=== PATIENT | female | born 1940 | race Caucasian/White ===

== ENCOUNTER 2025-05-21 22:53 | Inpatient (IN) | payer MEDICARE, OTHER, SELFPAY ==
[2025-05-21 17:06] VITALS: BP 142/50
[2025-05-21 17:35] LABS: Hematocrit 41.8 % (37.0-47.0); Hemoglobin 13.9 g/dL (12.0-16.0); Mean Corp Hgb Conc. 33.3 g/dL (33.0-37.0); Mean Corpuscular Volume 104.0 fL (81.0-99.0); Nucleated Red Blood Cells % 0 %; Platelet Count 439 10^3/uL (130-400); Red Cell Dist. Width 12.5 % (11.5-14.5)
[2025-05-21 17:54] LABS: ALT (SGPT) 26 U/L (0-35); AST (SGOT) 32 U/L (14-36); Albumin 3.6 g/dl (3.5-5.0); Alkaline Phosphatase 84 U/L (38-126); Blood Urea Nitrogen 34 mg/dl (7-17); Calcium 9.1 mg/dl (8.4-10.2); Carbon Dioxide 31 mmol/L (22-30); Chloride 100 mmol/L (98-107); Glucose 202 mg/dl (70-99); Potassium 4.6 mmol/L (3.5-5.1); Sodium 139 mmol/L (135-145); Total Protein 6.8 g/dl (6.3-8.2); eGFR > 60.00
--- NOTE | 2025-05-21 18:48 | ED.GENMED ---
History of Present Illness
General
Chief Complaint: Weakness
Source: patient and family
Exam Limitations: none
Time Seen by Provider: 05/21/25 18:30
History of Present Illness
History of Present Illness:
84yoF with a history of arthritis and autoimmune hepatitis presenting with her daughter for evaluation of fatigue. Patient lives in [place] and is in the area visiting her daughter. She has been taking prednisone for the past 17 years which was
initially prescribed for autoimmune hepatitis. This was decreased to 5mg every other day about 2 months ago. She was not feeling well and saw her PCP 4 days ago and this was switched back to 5mg daily. Patient has been fatigued with generalized
weakness since arriving at her daughter's house. She also reports shortness of breath and decreased appetite. No chest pain, vomiting, diarrhea, urinary symptoms, dizziness, abdominal pain.
Phy Exam
General Physical Exam
General Presentation: well appearing and no apparent distress
General Skin: warm and dry
General Habitus: normal and elderly
General Mental: alert
ENT Exam
ENT Exam: normocephalic
Cardiovascular Exam
Cardiovascular Exam: regular rate/rhythm and no edema
Pulmonary Exam
Pulmonary Exam: lungs clear, no respiratory distress, no rales, no crackles, no rhonchi and no wheezing
Gastrointestinal Exam
Gastrointestinal Exam: non tender, soft and non distended
Neurological Exam
Neurological Exam: alert
Addis Coma Scale
Eye Opening: Spontaneous
Verbal Response: Oriented
Motor Response: Obeys Commands
GCS Total Score: 15
Skin Exam
Skin Exam: normal color and warm/dry
Psychiatric Exam
Psychiatric Exam: normal mood/affect
Course
Orders/Labs/Results
Orders:
Orders
05/21/25 17:20
C-Reactive Protein Urgent
Complete Blood Count/With Diff Urgent
Comprehensive Metabolic Panel Urgent
Creatine Phosphokinase Urgent
Comment: ADD ON
Erythrocyte Sed Rate Urgent
Comment: CRP
TSH Urgent
Comment: ADD ON
05/21/25 17:21
EKG [Electrocardiogram (*1)] Urgent
Reason for Study: Chest Pain
EKG- Treatment ONCE
05/21/25 19:01
Add On- LAB Urgent
Tests Added?: TSH
Cardiac Monitoring- Treatment ONCE
0.9% Sodium Chloride 500 ml [Nss] 500 ml IV BOLUS
CR Chest - 2 Views Urgent
Comment:
Reason For Exam: SOB
05/21/25 19:18
Lactate Level [Lactic Acid] Urgent
NT-proBNP Urgent
Troponin I Urgent
05/21/25 19:20
COVID-19 Antigen Urgent
Source: Nasal Swab
Influenza A+B Rapid Molecular Urgent
RENE Source: Nasal Swab
Specimen Description:
05/21/25 19:39
Urinalysis Reflex To Culture Urgent
Date Specimen was Collected: 05/21/25
Time Specimen was Collected: 19:36
Urine Microscopic Reflex Cult Urgent
Urine Culture Urgent
RENE Source: U
Specimen Description:
Date Specimen was Collected: 05/21/25
Time Specimen was Collected: 19:36
05/21/25 20:46
CefTRIAXone [Rocephin] 1,000 mg IV NOW STA
05/21/25 21:03
Blood Culture Q30M
RENE Source: Blood/Venous
Specimen Description:
05/21/25 21:04
Blood Culture Q30M
RENE Source: Blood/Venous
Specimen Description:
05/21/25 22:19
Add On- LAB Urgent
Tests Added?: cpk
05/21/25 22:25
Admit/Transfer Patient As Directed
Co-Sign Provider:
Level of Care: Inpatient admission
Assign to:: Telemetry
Physician / Group: Mackenzie
Diagnosis: Weakness
Reason for Telemetry: Arrhythmia
Date to Stop Telemetry: 05/24/25
Time to Stop Telemetry: 11:00
Reason for Hospitalization: diuretics, echo
Expected length of stay greater than two midnights?: Yes
ELOS- Estimated Length of Stay in days: 3
I certify the patient meets the requirements for IP care: Yes
05/21/25 22:26
PRN Pain Medication Management As Directed
May give lesser potent ordered pain med per pt: Yes
preference::
Protocol:: Medication orders for pain may be administered in a
manner that supports deferring to patient preference
when the pt is:
- Requesting an ordered lesser potent pain medication.
Least to most potent pain medications are defined
as: acetaminophen < NSAID < tramadol < opioids
(morphine, oxycodone, hydromorphone).
- Requesting a lesser dose of the same medication IF
ORDERED.
- Requesting a less intrusive route of administration
if both routes are prescribed by the provider (PO <
IV).
05/21/25 22:28
Code Status As Directed
Resuscitation Status: Do not resuscitate
Reached after discussion with pt or family/Healthcare POA: Yes
DNR Bracelet Application ONCE
05/21/25 22:32
Furosemide [Lasix] 40 mg IV NOW STA
05/21/25 22:41
Add On- LAB Routine
Tests Added?: esr, crp
05/24/25 11:00
DC Protocol for Telemetry ONCE
Abnormal Lab Results
05/21/25 05/21/25
17:20 19:39
WBC 18.9 H 10^3/uL
(4.8-10.8)
RBC 4.02 L 10^6/uL
(4.20-5.40)
MCV 104.0 H fL
(81.0-99.0)
MCH 34.6 H pg
(27.0-31.0)
Plt Count 439 H 10^3/uL
(130-400)
Abs Immat Gran (auto) 0.1 H 10^3/uL
(0-0.05)
Absolute Neuts (auto) 16.6 H 10^3/uL
(1.4-6.5)
Absolute Lymphs (auto) 0.9 L 10^3/uL
(1.2-3.4)
Absolute Monos (auto) 1.2 H 10^3/uL
(0.1-0.6)
Immature Gran % 0.6 H %
(0-0.5)
Neutrophils % 87.8 H %
(42.2-75.2)
Lymphocytes % 4.5 L %
(20.5-51.1)
ESR 64 H mm/hour
(0-20)
Carbon Dioxide 31 H mmol/L
(22-30)
BUN 34 H mg/dl
(7-17)
Glucose 202 H mg/dl
(70-99)
Ur Occult Blood Reflex 4+ A
(Negative)
Leukocyte Esterase Rfl 3+ A
(Negative)
Urine RBC 7-10 A /HPF
(0-2)
Urine WBC (Reflex) 16-20 A /HPF
(0-5)
Urine Bacteria (Reflex) Moderate A
(Negative)
Urine Albumin (Reflex) 3+ A
(Neg - Trace)
05/21/25 17:20
05/21/25 17:20
Vital Signs
Initial and Last Documented VS:
Initial Vital Signs
Temp Pulse Resp BP Pulse Ox
98.2 F 72 16 142/50 94
05/21/25 17:06 05/21/25 17:06 05/21/25 17:06 05/21/25 17:06 05/21/25 17:06
Last Documented Vital Signs
Temp Pulse Resp BP Pulse Ox
98.2 F 82 19 174/66 93
05/21/25 17:06 05/21/25 22:15 05/21/25 22:15 05/21/25 22:00 05/21/25 22:15
MDM/Problems Addressed
Differential Diagnosis Includes:
84yoF here with generalized weakness, malaise, anorexia x several days. Also c/o SOB. No fevers. VSS. She is well appearing in no distress. Exam is reassuring. Differential diagnosis includes but is not limited to: viral illness, pneumonia, ACS,
dehydration, UTI, failure to thrive
Initial ED plan: Labs obtained in triage which shows a leukocytosis with a WBC of 18.9. Will check lactate, TSH, troponin/EKG, COVID/flu testing, UA, and CXR. IV fluid bolus.
*Pulse Oximetry
SaO2: 94
Oxygen Mode of Delivery: Room air
Patient hypoxic: no (94%)
*EKG
Interpreted by ED Provider?: Yes
EKG Intrepretation Date: 05/21/25
Heart Rate: 76
Rate: normal
Rhythm: sinus and PVC's
Rosalia: normal axis
QRS Pattern: right bundle branch block
Ischemia: no ischemia
*Critical Care Note
Total Time (30-74mins, 75-104mins- exclusive of procedures): Not Applicable
Update Note
Update Note:
EKG shows NSR with PVCs without ischemic changes and troponin WNL. Viral testing negative. UA with 3+ leukocytes and moderate bacteria suggesting UTI. Blood cultures and IV Rocephin added. Patient admitted for further evaluation and management.
ED Attending Note
-
Portions of this chart may have been created with voice recognition software.� Occasional wrong word or��sound alike� substitutions may have occurred due to the inherent limitations of voice recognition software.
Discharge Plan
Departure
Patient Disposition: Admit
Date of Disposition: 05/21/25
Time of Disposition: 20:56
Presentation/result/management discussed w/ accepting MD/DO: Hospitalist
Discharge Problem:
Urinary tract infection, Generalized weakness
Interventions
Interventions:
*Risk Screen - Suicide Last Done: 05/21/25 17:06
*General Assessment Last Done: 05/21/25 19:06
*Neglect/Abuse Screening Last Done: 05/21/25 17:06
*ED- Fall Risk Assessment Last Done: 05/21/25 19:06
*ED COVID-19 Vaccine History Last Done: 05/21/25 19:06
ED- Cardiac Assessment Last Done: 05/21/25 19:06
ED- Neurological Assessment Last Done: 05/21/25 19:06
ED- Pulmonary Assessment Last Done: 05/21/25 19:06
[2025-05-21 19:04] VITALS: BP 153/63
[2025-05-21 19:05] VITALS: BMI 22.1
[2025-05-21] MEDS: NSS 500 IV (19:35)
[2025-05-21 20:00] VITALS: BP 148/98
[2025-05-21 20:04] LABS: COVID-19 Antigen Negative (Negative)
[2025-05-21 20:14] LABS: Urine Character Slightly Cloudy (Clear)
[2025-05-21 20:19] LABS: Troponin I < 0.012 ng/ml
[2025-05-21 20:40] LABS: Urine Squamous Cell 16-20 /LPF (Few); Urine White Cell 16-20 /HPF (0-5)
[2025-05-21 20:45] LABS: TSH 3.97 uIU/ml (0.47-4.68)
[2025-05-21 21:00] VITALS: BP 178/95
[2025-05-21] MEDS: ROCEPHIN 1000 MG IV (21:05)
[2025-05-21 22:00] VITALS: BP 174/66
--- NOTE | 2025-05-21 22:06 | W.PN.UPDATE ---
Update Note
Progress Note Update
Patient seen in conjunction with LINA. I agree with her findings on history and physical. I concur with assessment and plan unless stated otherwise.
Briefly, this is a 84-year-old with past medical history of autoimmune hepatitis on chronic prednisone, hypertension, fibromyalgia who presents from home with complaints of generalized weakness. Patient usually lives in [place] but has been
visiting daughter recently.
Patient reported symptoms of fatigue began about a month ago after prednisone was tapered down to twice daily on and off. She states she started noticing fatigue lethargy and generalized weakness. She also has dyspnea on exertion with walking up a
flight of stairs. She denies orthopnea, PND, chest pain, palpitations, ankle edema since then. She reports increased sleepiness. She also reports generalized aches and pains for which she has been taking ibuprofen daily which makes her more
sleepy.
Patient denies any fevers or chills. She denies any urinary symptoms. She denies any cough. She denies any rash. She reports decreased appetite but does not know of any weight gain or weight loss.
Patient does have prior history of smoking and is on treatment for COPD, prior history of atypical chest pain and likely diagnosed with stress cardiomyopathy.
Since visiting daughter she has been reporting fatigue, lethargy and generalized weakness. She had a dose of prednisone recently decreased to 5 every other day from 5 daily but this has been more recently increased back to 5 daily again without any
improvement in her symptoms. Prednisone was increased back to 5 mg daily about 4 days ago
In the emergency department blood pressure was 150/83, pulse 71 temperature 98.2 and she is satting 93% on room air. ECG with normal sinus rhythm at a rate of 76 and right bundle with occasional PVC. No priors for comparison. She has a white
count of 18.9 with neutrophil percentage of 87, hemoglobin and platelets were normal. Electrolytes were normal. BUN/creatinine were 34 and 0.8. Glucose was 202. LFTs were normal. BNP was elevated at 2450. Troponin was negative. TSH within
normal limits.
Chest x-ray shows trace pleural effusion on the left. UA has positive leukocyte esterase WBCs and bacteria however he also has remote cells and likely is contaminated.
Assessment and plan
Dyspnea on exertion - Elevated BNP, trace pleural effusion and HTN suggestive of mild CHF
- admit to telemetry
- trial of lasix 40 iv overnight
- echo in am
- ambulating sats
- cardiology consult
Weakness/Fatigue - No evidence of acute infection. Possibly chronic arthritis vs polymyalgia
- orthostatics
- check esr/crp
- continue her duloxetine and sulfasalazine
- continue her prednisone 5, if cardiac w/u negative, consider dosing for PMR
Hyperglycemia - On low dose steroids but unclear when last intake
- a1c in am
DVT PPX - lovenox sq
Code status - patient changed mind and wants to be FULL CODE
--- NOTE | 2025-05-21 22:33 | HPS.HSE ---
Family Physician
-
Family Physician: PHYSICIAN PRIVATE
Chief Complaint
-
Weakness
History of Present Illness
Patient is an 84 y/o female past medical history of autoimmune hepatitis on chronic prednisone, hypertension, COPD and overactive bladder who presents with generalized weakness. Patient reports increasing weakness over the past several weeks. Her
prednisone dose had been decreased from daily to every other day but with theses symptoms it was increased back to daily. However, patient reports persistent symptoms. She notes associated poor appetite, but denies nausea, vomiting, diarrhea,
constipation or abdominal pain. She reports shortness of breath, particularly going up the stairs, but states that is has been ongoing for quite sometimes. She denies chest pain, palpitation or lower extremity edema. She denies dysuria or urinary
frequency. She denies fevers.
Patient lives in [place] and currently in the area visiting her daughter.
Medical History
Past Medical History
Past Medical History: Reports Other
Additional Past Medical History:
'Heart Attack' (?Takotsubo)
Essential Hypertension
Hyperlipidemia
Autoimmune Hepatitis
COPD
Overactive Bladder
Rheumatoid Arthritis
Fibromyalgia
Past Surgical History: Reports Other
Additional Past Surgical History:
Hysterectomy
Social History
Tobacco: Former Smoker (Quit about 25 years ago)
Alcohol: Occasional (One glass of wine a few nights a week)
Family History
Family History: Not pertinent
Allergies / Home Medications
Allergies reflects when Allergies were last updated in [employer].
Home Medications with original date entered in [employer]
Allergy/Medication List:
Allergies
Allergy/AdvReac Type Severity Reaction Status Date / Time
No Known Allergies Allergy Verified 05/21/25 17:05
Home Medications
aspirin 81 mg tablet,delayed release 81 mg PO DAILY 05/21/25
atorvastatin 40 mg tablet (Lipitor) 20 mg PO DAILY 05/21/25
calcium 500 mg (as carbonate)-vitamin D3 10 mcg (400 unit) tablet (Calcium 500 + D) 1 tab PO DAILY 05/21/25
duloxetine 30 mg capsule,delayed release 30 mg PO DAILY 05/21/25
lisinopril 10 mg tablet 10 mg PO DAILY 05/21/25
metoprolol succinate 25 mg tablet,extended release 24 hr (Toprol XL) 25 mg PO DAILY 05/21/25
prednisone 5 mg tablet 5 mg PO DAILY 05/21/25
sulfasalazine 500 mg tablet 500 mg PO DAILY 05/21/25
tiotropium bromide 2.5 mcg/actuation mist for inhalation (Spiriva Respimat) 2 puff inhalation DAILY 05/21/25
tolterodine 4 mg capsule,extended release 24 hr 4 mg PO QPM 05/21/25
vitamins A,C,E-nfzw-qtuqmv 4,296 mcg-226 mg-90 mg capsule 1 cap PO DAILY 05/21/25
Review of Systems
-
A 12 point ROS was completed and negative except as noted: Yes
Constitutional: Denies Fever or Chills
Respiratory: Reports Trouble Breathing
Cardiac: Denies Chest Pain or Palpitations
Abdomen/GI: Denies Abdominal Pain, Nausea, Vomiting or Diarrhea
Physical Exam
Vital Signs
Vital Signs
Temp Pulse Resp BP Pulse Ox
98.2 F 82 19 174/66 93
05/21/25 17:06 05/21/25 22:15 05/21/25 22:15 05/21/25 22:00 05/21/25 22:15
Physical Exam
General: Comfortable and Conversant
HEENT: Anicteric and Moist mucous membranes
Respiratory: Other (Slightly decreased breath sounds right base)
Cardiac: S1/S2 and Regular Rhythm
GI: Soft and Non Tender
Musculoskeletal: No Clubbing, No Cyanosis and No Edema
Skin: Warm and Dry
Neuro: Awake, Alert, Oriented and Nonfocal/grossly intact
Psych: Calm
Laboratory Results
-
05/21/25 17:20
05/21/25 17:20
Laboratory Results
Lactic Acid 1.9 mmol/L (0.7-2.0) 05/21/25 19:18
Total Bilirubin 0.6 mg/dl (0.2-1.3) 05/21/25 17:20
AST 32 U/L (14-36) 05/21/25 17:20
ALT 26 U/L (0-35) 05/21/25 17:20
Alkaline Phosphatase 84 U/L (38-126) 05/21/25 17:20
Troponin I < 0.012 ng/ml 05/21/25 19:18
Data Reviewed
-
Diagnostic Radiology: Image Personally Visualized and interpreted (CXR: Small right pleural effusion)
Lab Data: Labs Reviewed by me
Impression/Plan
-
Generalized Weakness / Fatigue, unclear etiology possibly related to volume overload vs hyperglycemia vs rheumatologic etiology
-Check ESR / CRP
-BNP elevated and CXR with small pleural effusion. Patient reports dyspnea on exertion though the chronicity is unclear. Give dose of Lasix now and monitor for response. Check Echocardiogram. Consult Cariology
-Urinalysis is slightly abnormal, but appears more consistent with contaminant. Patient denies any urologic symptoms therefore doubt urinary tract infection. Patient receive dose of Rocephin in ED, but will hold on further antibiotics
Hyperglycemia, patient without known history of diabetes
-Check HgbA1c
'Heart Attack' (?Takotsubo)
-Continue aspirin
Essential Hypertension
-Continue lisinopril and metoprolol with hold parameters
Hyperlipidemia
-Continue atorvastatin
Autoimmune Hepatitis
-Continue prednisone
COPD, no acute exacerbation
-Continue Spiriva
Overactive Bladder
-Continue Detrol
Rheumatoid Arthritis
-Continue sulfasalazine
Fibromyalgia
-Continue duloxetine
DVT proph: Lovenox
Code Status: DNR per patient at time of admission
[2025-05-21] MEDS: LASIX 40 MG IV (22:40)
[2025-05-21 23:29] VITALS: BP 142/93
[2025-05-22 00:10] LABS: C-Reactive Protein 178.80 mg/L (0.0-10.00)
[2025-05-22 00:47] VITALS: BP 172/82
[2025-05-22 00:48] VITALS: BMI 20.2
--- NOTE | 2025-05-22 01:35 | PTCARENOTE ---
Pt admitted to floor from ED. AAOx3, REDDING. VSS. NSR on the monitor with BBC and vent trigeminy. Oriented to room. Call bui within reach.
[2025-05-22 03:19] VITALS: BP 168/80
[2025-05-22 06:00] VITALS: BMI 20.2
[2025-05-22 07:00] VITALS: BP 162/68
[2025-05-22 07:24] LABS: Glucose - Point of Care 102 mg/dl (70-99)
[2025-05-22] MEDS: ASPIR LOW (ENTERIC COATED) 81 MG PO (07:44)
[2025-05-22] MEDS: CYMBALTA DELAYED RELEASE 30 MG PO (07:45)
[2025-05-22] MEDS: ZESTRIL 10 MG PO (07:45)
[2025-05-22] MEDS: AZULFIDINE 500 MG PO (07:45)
[2025-05-22] MEDS: LIPITOR 20 MG PO (07:45)
[2025-05-22] MEDS: DELTASONE 5 MG PO (07:45)
[2025-05-22] MEDS: TOPROL XL 25 MG PO (07:46)
[2025-05-22 07:52] LABS: Hematocrit 38.7 % (37.0-47.0); Hemoglobin 13.2 g/dL (12.0-16.0); Mean Corp Hgb Conc. 34.1 g/dL (33.0-37.0); Mean Corpuscular Volume 100.8 fL (81.0-99.0); Platelet Count 406 10^3/uL (130-400); Red Cell Dist. Width 12.5 % (11.5-14.5)
[2025-05-22] MEDS: SPIRIVA RESPIMAT 2.5 MCG 2 PUFF INH (08:30)
[2025-05-22 08:45] LABS: Blood Urea Nitrogen 26 mg/dl (7-17); Calcium 8.8 mg/dl (8.4-10.2); Carbon Dioxide 34 mmol/L (22-30); Chloride 98 mmol/L (98-107); Estimated Creatinine Clearance 49 ml/min; Glucose 90 mg/dl (70-99); Potassium 4.6 mmol/L (3.5-5.1); Sodium 138 mmol/L (135-145); eGFR > 60.00
--- NOTE | 2025-05-22 09:12 | CON.CAR ---
Addendum entered and electronically signed by Salvador Ng MD 05/22/25 11:46:
Patient seen in collaboration with PGY 2 resident; agree with below.
- 84-year-old female (known to her primary promotions executive in [place]; the patient is visiting her son and [id number] in this area but plans to return to [place] in 3 days) with hypertension, hyperlipidemia, likely chronic PVCs, COPD, and
autoimmune hepatitis (on chronic steroids); presenting with generalized weakness.
- Cardiology was consulted for possible CHF.
- Examination: Heart regular rate and rhythm, ectopy present, 3/6 systolic murmur; lungs clear to auscultation bilaterally; abdomen soft; extremities no edema.
- Assessment/plan:
- The patient has no obvious clinical evidence of CHF; cardiac BNP is elevated, but this is likely nonspecific as the patient is compensated on examination and denies dyspnea.
- There does not appear to be a need for a standing diuretic.
- PVCs: Asymptomatic, likely chronic; continue current dose of Toprol-XL 25 mg daily.
- No further cardiac recommendations at this time; patient can follow-up with her primary Entrepreneur as an outpatient once she returns to [place].
Original Note:
Documented by User: Gracie Parkinson MD, Resident 05/22/25 10:44
Consultation
Consultation Request
Date/Time Consultation Requested: 05/22/25
Date/Time Consultation Performed: 05/22/25
Requesting Provider: Terri Wade
Performing Provider: Berenice Franco
Reason for Consultation: Exertional dyspnea, elevated BNP and Chest xray with effusions
Medical History
-
Chief Complaint: Generalized weakness
History of Present Illness:
Patient is an 84-year-old female, with past medical history of autoimmune hepatitis, rheumatoid arthritis, COPD, hypertension, hyperlipidemia, who presented to the emergency department with complaint of generalized weakness. She has been on chronic
steroid therapy 5 mg daily for autoimmune hepatitis, which was interrupted last week to alternate days. Patient states that she started to feel very weak and all her joints were aching, she called her PCP who advised to resume her medications to
daily. She has been taking prednisone daily since last Saturday but still feeling very weak.
She is from [place] and is currently visiting her son and [id number]. Medical records are not available. She sees Dr. Brooks at [facility] in [place]. She last saw him 3 months and no changes were made and she was stable. She
is supposed to see him again in 3 months. On telemetry review, she has some runs of multifocal atrial tachycardia but nothing significant. She is comfortable, respiratory effort normal, no peripheral edema and appears euvolemic.
She denies any shortness of breath, chest pain, palpitations, fluttering of chest, or peripheral edema.
Based on evaluation done in the ER she had an elevated proBNP of 2520 but we do not know her baseline. Esr and CRP are elevated Chest x-ray showed trace pleural effusions.
Past Medical History
Past Medical History: COPD, HTN, Hypercholesterolemia and Other (Autoimmune Hepatitis, Rheumatoid arthritis, Fibromyalgia, overactive bladder, Heart attack???)
Past Surgical History: Gynecological (Hysterectomy)
Social History
Tobacco: Former Smoker ((Quit about 25 years ago))
Alcohol: Occasional ((One glass of wine ))
Drug: None
Personal:
Living: Other ([facility] facility)
Employment: Retired
Family History
Family History: Other (Non contributory)
Allergies / Home Medications
Allergy/AdvReac Type Severity Reaction Status Date / Time
No Known Allergies Allergy Verified 05/21/25 17:05
�Medication �Instructions �Recorded �Confirmed �Type
aspirin 81 mg tablet,delayed 81 mg PO DAILY 05/21/25 05/21/25 History
release
atorvastatin 40 mg tablet (Lipitor) 20 mg PO DAILY 05/21/25 05/21/25 History
calcium 500 mg (as 1 tab PO DAILY 05/21/25 05/21/25 History
carbonate)-vitamin D3 10 mcg (400
unit) tablet (Calcium 500 + D)
duloxetine 30 mg capsule,delayed 30 mg PO DAILY 05/21/25 05/21/25 History
release
lisinopril 10 mg tablet 10 mg PO DAILY 05/21/25 05/21/25 History
metoprolol succinate 25 mg 25 mg PO DAILY 05/21/25 05/21/25 History
tablet,extended release 24 hr
(Toprol XL)
prednisone 5 mg tablet 5 mg PO DAILY 05/21/25 05/21/25 History
sulfasalazine 500 mg tablet 500 mg PO DAILY 05/21/25 05/21/25 History
tiotropium bromide 2.5 2 puff inhalation DAILY 05/21/25 05/21/25 History
mcg/actuation mist for inhalation
(Spiriva Respimat)
tolterodine 4 mg capsule,extended 4 mg PO QPM 05/21/25 05/21/25 History
release 24 hr
vitamins A,C,T-nyna-ohbzdr 4,296 1 cap PO DAILY 05/21/25 05/21/25 History
mcg-226 mg-90 mg capsule
Review of Systems
-
All other systems: Negative unless noted
Physical Exam
Vital Signs
Temp Pulse Resp BP Pulse Ox
97.6 F 85 16 162/68 92
05/22/25 07:00 05/22/25 08:33 05/22/25 08:33 05/22/25 07:45 05/22/25 08:33
Lab Results
05/22/25 06:23
05/22/25 06:23
Troponin I < 0.012 ng/ml 05/21/25 19:18
Wrr-H-Dqjfdudxqgy Pept 2520 pg/ml 05/21/25 19:18
Physical Exam
General: No Apparent Distress, Comfortable and Other (weak and fragile)
Respiratory: Clear and Non Labored Respirations; Negative Wheezes, Crackles or Rhonchi
Cardiac: S1/S2 and Irregular Rhythm; Negative Murmur, Rub, Peripheral Edema, Calf Tenderness or JVD
GI: Soft and Non Tender
Musculoskeletal: No Clubbing, No Cyanosis and No Edema
Skin: Warm and Dry
Neuro: Awake and AO x 3
Psych: Calm
Impression / Plan
-
Impression
84-year-old female, presented with generalized weakness due to interruption of her steroid regimen in setting of autoimmune hepatitis/rheumatoid arthritis.
Elevated CRP and ESR, elevated WBC count
Chest g-zpt-jajkgkjvmaqlkq of the lungs and trace pleural effusion BNP 2520
TSH 3.97
Cortisol pending
Assessment/plan
# heart failure unlikely
Patient euvolemic
No signs of breathing discomfort, denies orthopnea/PND
Not on any diuretics at home
proBNP elevated but not clinically relevant at this point
Chest x-ray shows trace pleural effusions but there is no pulmonary congestion to suggest heart failure
Continue home medications including aspirin, atorvastatin, metoprolol and lisinopril
Follow-up with primary promotions executive
# Multifocal atrial tachycardia
On telemetry review, she had brief runs of multifocal atrial tachycardia
Expected given underlying lung pathology
No intervention needed at this time
# Hyperlipidemia
Continue atorvastatin
#Hypertension
On lisinopril
#Rheumatoid arthritis
Sulfasalazine
#Autoimmune hepatitis
On prednisone 5 mg daily

Documented by User: Salvador Ng MD 05/22/25 11:42
Consultation
Consultation Request
Performing Provider: Berenice Franco MD
Data Reviewed
-
EKG: Tracing Personally Visualized and interpreted (Sinus rhythm with short VT, frequent PVCs, RBBB.)
Labs: Labs Reviewed by me and Discussed with Physician (PGY-2)
--- NOTE | 2025-05-22 10:40 | W.PN.HOSP.TC ---
Today's Communication/Plan
-
Assessment / Plan
Assessment / Plan
General: No Apparent Distress, Comfortable and Conversant
HEENT: NormoCephalic, Moist mucous membranes, Atraumatic
Respiratory: Clear and Non Labored Respirations
Cardiac: S1/S2 and Regular Rhythm; No Rub or Gallop
GI: Soft, Non Tender, Non Distended and Normal Bowel Sounds
Musculoskeletal: No Edema, no deformity
Skin: Warm and dry
: NO Umanzor
Neuro: Awake, Alert, Nonfocal/grossly intact
Psych: Calm and Intact Judgment/Insight
Ms. Frausto is a 84-year-old female with a medical history of COPD, autoimmune hepatitis (on chronic low-dose prednisone), hypertension, and rheumatoid arthritis who presented due to progressive weakness over the past several weeks. She thinks the
symptoms were triggered by a change in her prednisone dosage. She has been on prednisone 5 mg daily for the past 18 years but her physician was trying to wean her off of this by transitioning to prednisone 5 mg every 48 hours. However her symptoms
have persisted even after her symptoms have persisted even after her prednisone was increased back to 5 mg daily on Thursday 05/17. Her ESR and CRP are elevated which is likely chronic. She has a leukocytosis which is likely due to chronic steroid
use. She has remained afebrile and cultures are negative to date. Labs were remarkable for pyuria, bacteria, RBCs, and proteinuria. She denies any urinary symptoms. She has been admitted for further evaluation and management.
Generalized weakness and fatigue:
- Suspect related to her recent change in prednisone dosage, now back to 5 mg daily which was her previous dose for the past 18 years due to autoimmune hepatitis
- Will trial stress dose steroids
- Checking a.m. cortisol although this is likely of limited value considering recent steroid use, but would not attempt to wean steroids at this time, TSH is within normal limits
- Will recheck urinalysis as there was some concern the initial UA was contaminated, of note she was given a dose of ceftriaxone in the ED
- She is not bradycardic or on beta-blockers
- Not hypoglycemic, in fact she was hyperglycemic on admission which is likely related to her steroid use, hemoglobin A1c pending
- Chest x-ray with no evidence of pulmonary infection but did show trace bilateral pleural effusions, she does have some dyspnea on exertion which may be related to her COPD, she has been saturating appropriately on room air
Pleural effusions:
- Trace bilateral pleural effusions
- Clinically insignificant
- Elevated BNP, no clinical evidence of heart failure, can follow-up with primary food cooking machine operator
COPD:
- Without acute exacerbation, not spastic on exam
- Continue scheduled nebulizer treatments
- Already on chronic steroids for autoimmune hepatitis
Abnormal urinalysis:
- UA shows RBCs, pyuria, bacteria, and proteinuria
- Some concern that this was contaminated, will repeat
- Patient denies any urinary symptoms, did receive 1 dose of ceftriaxone in the ED
- Depending on the results of repeat UA, may need further workup likely as outpatient
Abnormal lung finding on imaging:
- Chest x-ray showed 1.6 cm nodular opacity in the lateral right lower lobe
- Will need to follow-up for nonemergent chest CT in the outpatient setting
Rheumatoid arthritis:
- Continue sulfasalazine
Hypertension:
- Continue home lisinopril 10 mg daily
DVT prophylaxis: Lovenox
CODE STATUS: Full code
Total time spent on today's encounter was 43 minutes
Anticipated Discharge: 24 - 48 hours
Subjective/Interval History
-
Date of Service: May 22, 2025
Patient was seen and examined at bedside this morning. Still feeling generally weak, she thinks due to recent change in her prednisone dosage. Still no urinary symptoms. Remains hemodynamically stable and afebrile.
Objective Data
-
Labs:
Laboratory Results
05/22/25
06:23
WBC 17.8 H
Hgb 13.2
Hct 38.7
Plt Count 406 H
Sodium 138
Potassium 4.6
Chloride 98
Carbon Dioxide 34 H
BUN 26 H
Creatinine 0.7
Glucose 90
Calcium 8.8
Vital Signs:
Vital Signs
Temp Pulse Resp BP Pulse Ox
97.6 F 85 16 162/68 92
05/22/25 07:00 05/22/25 08:33 05/22/25 08:33 05/22/25 07:45 05/22/25 08:33
I&O
05/21/25 05/22/25 05/23/25
06:59 06:59 06:59
Intake Total 120 / 120
Balance 120 / 120
Review of Systems
-
History Source: Patient
All other systems: Reviewed and negative
Constitutional: Reports Fatigue and Weakness
Physical Exam
-
General: No Apparent Distress
[2025-05-22 11:00] VITALS: BP 147/80
[2025-05-22 11:11] LABS: Glycohemoglobin (HgbA1c) 6.2 % (4.0-5.6)
[2025-05-22 11:22] LABS: Cortisol, Random 15.2 ug/dl
[2025-05-22] MEDS: SOLU-CORTEF 25 MG IV (11:47)
[2025-05-22 11:59] LABS: Urine Character Clear (Clear)
[2025-05-22 12:06] LABS: Urine Squamous Cell 0-2 /LPF (Few)
[2025-05-22 12:22] LABS: Glucose - Point of Care 147 mg/dl (70-99)
--- NOTE | 2025-05-22 12:59 | W.DCSUMMARY ---
Discharge Summary
Discharge Data
Date of Admission: 05/21/25
Date of Discharge: 05/22/25
Total time spent discharging patient (in min): 57
-
Pending Results: No
Hospital Course
Ms. Frausto is a 84-year-old female with a medical history of COPD, autoimmune hepatitis (on chronic low-dose prednisone), hypertension, cardiomyopathy (reportedly Takotsubo's, now recovered), and rheumatoid arthritis who presented due to progressive
weakness over the past several weeks. She thinks the symptoms were triggered by a change in her prednisone dosage. She has been on prednisone 5 mg daily for the past 18 years but her physician was trying to wean her off of this by transitioning to
prednisone 5 mg every 48 hours. However her symptoms have persisted even after her symptoms have persisted even after her prednisone was increased back to 5 mg daily on Thursday 05/17. Her ESR and CRP are elevated which is likely chronic. She has a
leukocytosis which is likely due to chronic steroid use. She has remained afebrile and cultures are negative to date. Labs were remarkable for pyuria, bacteria, RBCs, and proteinuria. She denies any urinary symptoms. She was admitted for further
evaluation and management.
Is likely that her presenting symptoms are due to her recent change in prednisone dosing. She may also have a urinary tract infection contributing to her presenting symptoms.
She was given a dose of IV hydrocortisone 25 mg in addition to being continued on her prednisone 5 mg daily. She will be continued on her home dose of prednisone 5 mg daily at discharge. She will need to follow-up with her primary team when she
gets home to [place] for ongoing steroid management.
Her urinalysis was repeated due to concern for contamination. Repeat urinalysis redemonstrated red blood cells, bacteria, and proteinuria. She is already on lisinopril for hypertension which she will be continued on and is beneficial for renal
protection. She will need to follow-up with her PCP and a branch credit counselor for further monitoring and likely will need to obtain a renal ultrasound. She will be given 4 more days of oral antibiotics to complete a total 5-day course for suspected
urinary tract infection.
She had no clinical evidence of heart failure. She had an elevated BNP although this is of limited clinical value. She was evaluated by cardiology who felt she was not heart failure and an echocardiogram was not indicated. She can follow-up with
her primary administrative sales assistant.
Her initial blood sugar at time of this admission was 202 and her hemoglobin A1c was 6.2%. This is very likely due to her chronic steroid use. She will be started on low-dose metformin to help with blood sugar management. She should monitor her
diet to minimize carbohydrate intake as much as possible for optimal blood glucose control. She will of course need ongoing follow-up with her primary care physician for blood sugar monitoring and diabetic management.
Chest x-ray showed an abnormal finding of a 1.6 cm nodular opacity in the lateral right lower lobe. Findings were discussed with the patient and her daughter and it is recommended that she get a nonemergent chest CT in the outpatient setting for
further evaluation. The patient is a former smoker and does not remember if she has ever had any screening CT scans for lung cancer.
At time of hospital discharge she was medically stable.
General: No Apparent Distress, Comfortable and Conversant
HEENT: NormoCephalic, Moist mucous membranes, Atraumatic
Respiratory: Clear and Non Labored Respirations
Cardiac: S1/S2 and Regular Rhythm; No Rub or Gallop
GI: Soft, Non Tender, Non Distended and Normal Bowel Sounds
Musculoskeletal: No Edema, no deformity
Skin: Warm and dry
: NO Umanzor
Neuro: Awake, Alert, Nonfocal/grossly intact
Psych: Calm and Intact Judgment/Insight
Discharge Plan
-
Patient Disposition: Home (Routine Discharge)
Discharge Diagnosis/Procedures: Generalized weakness and fatigue
Diet: Diabetic, Carb Controlled
Additional Diets: Take dietary protein supplements daily
Others Tests: Follow-up with your PCP to obtain a CT chest for evaluation of right lower lobe nodular abnormality
Repeat urinalysis to monitor red blood cells and protein in your urine
Activity Restrictions/Additional Instructions:
Ms. Frausto is a 84-year-old female with a medical history of COPD, autoimmune hepatitis (on chronic low-dose prednisone), hypertension, cardiomyopathy (reportedly Takotsubo's, now recovered), and rheumatoid arthritis who presented due to progressive
weakness over the past several weeks. She thinks the symptoms were triggered by a change in her prednisone dosage. She has been on prednisone 5 mg daily for the past 18 years but her physician was trying to wean her off of this by transitioning to
prednisone 5 mg every 48 hours. However her symptoms have persisted even after her symptoms have persisted even after her prednisone was increased back to 5 mg daily on Thursday 05/17. Her ESR and CRP are elevated which is likely chronic. She has a
leukocytosis which is likely due to chronic steroid use. She has remained afebrile and cultures are negative to date. Labs were remarkable for pyuria, bacteria, RBCs, and proteinuria. She denies any urinary symptoms. She was admitted for further
evaluation and management.
Is likely that her presenting symptoms are due to her recent change in prednisone dosing. She may also have a urinary tract infection contributing to her presenting symptoms.
She was given a dose of IV hydrocortisone 25 mg in addition to being continued on her prednisone 5 mg daily. She will be continued on her home dose of prednisone 5 mg daily at discharge. She will need to follow-up with her primary team when she
gets home to [place] for ongoing steroid management.
Her urinalysis was repeated due to concern for contamination. Repeat urinalysis redemonstrated red blood cells, bacteria, and proteinuria. She is already on lisinopril for hypertension which she will be continued on and is beneficial for renal
protection. She will need to follow-up with her PCP and a branch credit counselor for further monitoring and likely will need to obtain a renal ultrasound. She will be given 4 more days of oral antibiotics to complete a total 5-day course for suspected
urinary tract infection.
She had no clinical evidence of heart failure. She had an elevated BNP although this is of limited clinical value. She was evaluated by cardiology who felt she was not heart failure and an echocardiogram was not indicated. She can follow-up with
her primary administrative sales assistant.
Her initial blood sugar at time of this admission was 202 and her hemoglobin A1c was 6.2%. This is very likely due to her chronic steroid use. She will be started on low-dose metformin to help with blood sugar management. She should monitor her
diet to minimize carbohydrate intake as much as possible for optimal blood glucose control. She will of course need ongoing follow-up with her primary care physician for blood sugar monitoring and diabetic management.
Chest x-ray showed an abnormal finding of a 1.6 cm nodular opacity in the lateral right lower lobe. Findings were discussed with the patient and her daughter and it is recommended that she get a nonemergent chest CT in the outpatient setting for
further evaluation. The patient is a former smoker and does not remember if she has ever had any screening CT scans for lung cancer.
At time of hospital discharge she was medically stable.
Referrals:
Nephrology/Hypertension Spec. [Provider Group]
PRIVATE,PHYSICIAN [Family Provider, Internal Medicine]
Prescriptions:
New
cefdinir 300 mg capsule
300 mg PO BID 4 Days Qty: 8 0RF
metformin 500 mg tablet
500 mg PO DAILY Qty: 30 0RF
Continued
atorvastatin [Lipitor] 40 mg Tablet
20 mg PO DAILY
sulfasalazine 500 mg Tablet
500 mg PO DAILY
tolterodine 4 mg Capsule,Extended Release 24hr
4 mg PO QPM
prednisone 5 mg Tablet
5 mg PO DAILY
aspirin 81 mg Tablet,Delayed Release (Dr/Ec)
81 mg PO DAILY
lisinopril 10 mg Tablet
10 mg PO DAILY
metoprolol succinate [Toprol XL] 25 mg Tablet Extended Release 24 Hr
25 mg PO DAILY
duloxetine 30 mg Capsule,Delayed Release(Dr/Ec)
30 mg PO DAILY
vitamins A,C,R-bznw-jahyag 4,296 mcg-226 mg-90 mg Capsule
1 cap PO DAILY
calcium carbonate-vitamin D3 [Calcium 500 + D] 500 mg-10 mcg (400 unit) Tablet
1 tab PO DAILY
Spiriva Respimat 2.5 mcg/actuation mist
2 puff INHALATION DAILY
Discharge Orders:
Discharge Patient (As Directed); Ordered 05/22/25
Ordered By: Blair Johnson
Discharge Date and Time
Print Language: AUSTRIAN
== END 2025-05-22 13:09 | disposition home or self-care (01) | DRG 690 ==
LOC: 4 WEST ACU 22:53
PROVIDERS: Physician Assistant; Physician Assistant Medical; ADMITTING PHYSICIAN Internal Medicine; ATTENDING PHYSICIAN Internal Medicine; CONSULT PHYSICIAN Internal Medicine; EMERGENCY PHYSICIAN Emergency Medicine
DX: N39.0 Urinary tract infection, site not specified (principal); I47.19 Other supraventricular tachycardia; J90 Pleural effusion, not elsewhere classified; R53.83 Other fatigue; K75.4 Autoimmune hepatitis; M19.90 Unspecified osteoarthritis, unspecified site; M79.7 Fibromyalgia; R73.9 Hyperglycemia, unspecified; I10 Essential (primary) hypertension; I45.10 Unspecified right bundle-branch block; I49.3 Ventricular premature depolarization; E78.00 Pure hypercholesterolemia, unspecified; R80.9 Proteinuria, unspecified; J44.9 Chronic obstructive pulmonary disease, unspecified; N32.81 Overactive bladder; M06.9 Rheumatoid arthritis, unspecified; Z66 Do not resuscitate; Z79.52 Long term (current) use of systemic steroids; Z87.891 Personal history of nicotine dependence; Z79.82 Long term (current) use of aspirin; Z90.710 Acquired absence of both cervix and uterus
CPT/HCPCS: 71046; 80048; 80053; 81003; 81015; 82533; 82550; 82962; 83036; 83605; 83880; 84443; 84484; 85025; 85027; 85652; 86140; 87040; 87086; 87502; 87811; 93005; 94640; 96361; 96374; 99285